=== PATIENT | female | born 1975 | race Caucasian/White ===

== ENCOUNTER 2019-03-18 10:20 | Emergency (ER) | payer OTHER ==
[~2019-03-18] VITALS: Ht 142.2 cm; Wt 52.3 kg
[2019-03-18 10:30] VITALS: Ht 142.2 cm; Wt 52.3 kg
[2019-03-18 11:18] LABS: BASOPHIL % 0.6 % (0-2); PLATELET COUNT 231 x10^3mcL (130-400)
[2019-03-18 11:28] LABS: CALCIUM 8.4 mg/dL (8.5-10.1); CARBON DIOXIDE 30.9 mmol/L (21-32); CHLORIDE SERUM 105 mmol/L (98-107); CREATININE SERUM 0.7 mg/dL (0.6-1.0); GFR1 > 60 mL/min; GLUCOSE SERUM 94 mg/dL (74-106); POTASSIUM SERUM 4.2 mmol/L (3.5-5.1); SODIUM SERUM 143 mmol/L (136-145)
[2019-03-18 11:41] LABS: ALBUMIN 3.7 g/dL (3.4-5.0); ALKALINE PHOSPHATASE 87 U/L (46-116); ALT/SGPT 33 U/L (14-59); AST/SGOT 23 U/L (15-37); BILIRUBIN TOTAL 0.41 mg/dL (0.20-1.00); TOTAL PROTEIN, SERUM 7.2 g/dL (6.4-8.2)
[2019-03-18 12:57] VITALS: BP 146/85
== END 2019-03-18 12:57 | disposition home or self-care (01) ==
LOC: ED 10:20
PROVIDERS: Emergency Medicine
DX: I16.0 Hypertensive urgency (principal); Z88.8 Allergy status to other drugs, medicaments and biological substances
CPT/HCPCS: 36415

== ENCOUNTER 2019-09-09 07:05 | Emergency (ER) | payer OTHER ==
[~2019-09-09] VITALS: Ht 142.2 cm; Wt 53.5 kg
[2019-09-09 07:22] VITALS: Ht 142.2 cm; Wt 53.5 kg
[2019-09-09 08:16] VITALS: BP 136/84
== END 2019-09-09 08:16 | disposition home or self-care (01) ==
LOC: ED 07:05
DX: J06.9 Acute upper respiratory infection, unspecified (principal); I10 Essential (primary) hypertension; Z88.0 Allergy status to penicillin
CPT/HCPCS: Q0092